=== PATIENT | female | born 1930 | race Caucasian/White ===

== ENCOUNTER 2017-07-28 21:04 | Inpatient (IN) | payer MEDICARE ==
[~2017-07-28] VITALS: Ht 152.4 cm; Wt 45.8 kg
--- NOTE | 2017-07-28 21:26 | NUR ---
Patient BIB private ambulance from [facility] for Medical Clearance and GPS admission. Patient arrives on 5150 hold for GD. Per hold, patient has been refusing medications for several days, has become increasingly agitated, as well as both verbally and physically aggressive towards staff at her facility. Per hold, patient has been non-compliant with ADLs and basic care. Patient arrives A/O x1, ambulatory, calm and cooperative with staff. To room 4B.
[2017-07-28] MEDS ORDERED: CHOL20004 PO (21:27)
[2017-07-28] MEDS ORDERED: MAG355OR18 PO (21:27)
[2017-07-28] MEDS ORDERED: SIMV10TA2 PO (21:27)
[2017-07-28] MEDS ORDERED: ASCO-375 PO (21:27)
[2017-07-28] MEDS ORDERED: MAGN400O6 PO (21:27)
[2017-07-28] MEDS ORDERED: ACET-2154 PO (21:27)
[2017-07-28] MEDS ORDERED: OLAN7.5T3 PO (21:27)
[2017-07-28 21:35] LABS: BASOPHILS # (AUTO) 0.1 K/uL (0.0-8.0); BASOPHILS % (AUTO) 0.6 % (0.0-2.0); EOSINOPHILS # (AUTO) 0.2 K/uL (0.0-0.7); EOSINOPHILS % (AUTO) 1.7 % (0.0-7.0); HEMATOCRIT 39.6 % (31.2-41.9); HEMOGLOBIN 13.5 g/dL (10.9-14.3); LYMPHOCYTES # (AUTO) 6.2 K/uL (20.0-40.0); LYMPHOCYTES % (AUTO) 46.2 % (20.5-51.5); MEAN CORPUSCULAR HGB CONC 34 g/dL (32.3-35.6); MEAN CORPUSCULAR VOLUME 88.1 fL (75.5-95.3); MONOCYTES # (AUTO) 1.2 K/uL (2.0-10.0); MONOCYTES % (AUTO) 8.6 % (0.0-11.0); NEUTROPHILS # (AUTO) 5.8 K/uL (1.8-8.9); NEUTROPHILS % (AUTO) 42.9 % (38.5-71.5); PLATELET COUNT (AUTO) 307 K/uL (179-408); WHITE BLOOD COUNT (AUTO) 13.5 K/uL (3.8-11.8)
[2017-07-28 21:39] LABS: CARBON DIOXIDE 31 mmol/L (21-32); CHLORIDE 106 mmol/L (98-107); CREATININE 0.7 mg/dL (0.6-1.3); GLUCOSE 99 mg/dL (74-106); UREA NITROGEN, BLOOD 23 mg/dL (7-18)
[2017-07-28 21:56] LABS: ALANINE AMINOTRANSFERASE 16 U/L (14-59); ALKALINE PHOSPHATASE 93 U/L (50-136); ASPARTATE AMINOTRANSFERASE 13 U/L (15-37); BILIRUBIN,DIRECT 0.1 mg/dL (0.0-0.2); BILIRUBIN,TOTAL 0.4 mg/dL (0.2-1.0)
[2017-07-28 21:57] LABS: ACETAMINOPHEN < 2.0 ug/mL (10-30); ETHANOL < 3 MG/DL (0-0)
[2017-07-28 22:08] LABS: THYROID STIMULATING HORMONE 2.384 mIU/mL (0.358-3.740)
--- NOTE | 2017-07-28 22:15 | NUR ---
Patient medically cleared by ERMD.
--- NOTE | 2017-07-28 22:36 | NUR ---
Pt. admitted to GPS, under care of Dr. Wilde Belongs List completed
[2017-07-28 22:45] VITALS: BP 134/65
[2017-07-28] MEDS ORDERED: ZOLPIDEM 5 MG TABLET PO PRN (22:45)
[2017-07-28] MEDS ORDERED: ACETAMINOPHEN 325 MG TABLET PO PRN (22:45)
[2017-07-28] MEDS ORDERED: LORAZEPAM 0.5 MG TABLET PO PRN (22:45)
[2017-07-28] MEDS ORDERED: MAG HYDROX/AL HYDROX/SIMETH 30 ML LIQUID UDC PO PRN (22:45)
--- NOTE | 2017-07-28 23:50 | NUR ---
received to care, on a 72 hour hold, for gravely being disabled. according to the chart, she is a resident of [facility], where she was reportedly received to care, at 2240, on a 72 hour hold, for gravely disabled. according to the chart, she is a resident of [facility], where she was refusing her medications and hygiene for several days, and had become increasingly agitated, and verbally/physically aggressive, to the point of being unmanageable, at her facility. upon arrival, she was cooperative, but very confused, and disorganized. unable to answer or comprehend interview questions. she was assisted to the bathroom, and to bed. as of 2349, she appears to be asleep. no distress noted. will continue to monitor closely. Addendum: 07/29/17 at 0035 by BUSTER MELENDEZ LVN error/ please disregard. Addendum: 07/29/17 at 0035 by BUSTER MELENDEZ LVN error
--- NOTE | 2017-07-28 23:50 | NUR ---
received to care, on a 72 hour hold, for gravely being disabled. according to the chart, she is a resident of [facility] [place], where she was reportedly refusing care, hygiene, and medications, for several days, becoming increasingly agitated, and verbally/physically aggressive. upon arrival on the unit, she was cooperative, but confused and disorganized, and unable to answer or comprehend questions. she was assisted to the bathroom, and bed. as of 2329, she appears asleep. no distress noted. will continue to monitor closely.
[2017-07-29 02:32] LABS: *BILIRUBIN,URIN NEGATIVE (NEGATIVE); *BLOOD, URINE Trace-lysed (NEGATIVE); *CLARITY,URINE CLEAR (CLEAR); *COLOR,URINE YELLOW (YELLOW); *KETONES,URINE 1+ (NEGATIVE); *PROTEIN,URINE NEGATIVE (NEGATIVE); *UROBILINOGEN,URINE 0.2 E.U./dl (NORMAL); LEUKOCYTE ESTERASE ,URINE TRACE (NEGATIVE); NITRITE, URINE NEGATIVE (NEGATIVE); PH,URINE 5.5 (5.0-8.0); UGLUCOSE NEGATIVE (NEGATIVE)
[2017-07-29 02:39] LABS: BACTERIA,URINE NONE SEEN /HPF (NONE SEEN); SQUAMOUS EPITHELIAL CELL,UR FEW /HPF (NONE SEEN)
[2017-07-29 03:46] LABS: *AMPHETAMINE, URINE NEGATIVE (NEGATIVE); *BARBITURATE, URINE NEGATIVE (NEGATIVE); *CANNABINOID, URINE NEGATIVE (NEGATIVE); *COCCAINE, URINE NEGATIVE (NEGATIVE); *OPIATE, URINE NEGATIVE (NEGATIVE); *PHENCYCLIDINE SCREEN,URINE NEGATIVE (NEGATIVE)
--- NOTE | 2017-07-29 06:00 | NUR ---
slept 4.5 hours, total. continues to sleep. no distress noted.
[2017-07-29 07:30] VITALS: BP 104/50
[2017-07-29] MEDS ORDERED: Medication Not On Formulary EA (Cholecalciferol (Vitamin D3) (Vitamin D CAPSULE) 2,000 U PO SCH (10:30)
[2017-07-29] MEDS: ASCORBIC ACID 500 MG TABLET PO SCH (12:19)
[2017-07-29 15:00] VITALS: BP 127/60
[2017-07-29] MEDS: SULFAMETH/TRIMETH 800/160 MG TABLET PO SCH ×2 (15:56→20:20)
[2017-07-29] MEDS: SIMVASTATIN 10 MG TABLET PO SCH (20:20)
[2017-07-29] MEDS: OLANZAPINE ZYDIS 5 MG TAB.RAPDIS PO SCH (20:20)
[2017-07-29 20:36] VITALS: BP 116/60
[2017-07-30 07:30] VITALS: BP 121/52
[2017-07-30] MEDS: CHOLECALCIFEROL 1,000 UNIT TABLET PO SCH (08:52)
[2017-07-30] MEDS: OLANZAPINE ZYDIS 5 MG TAB.RAPDIS PO SCH ×2 (08:52→20:16)
[2017-07-30] MEDS: SULFAMETH/TRIMETH 800/160 MG TABLET PO SCH (08:52)
[2017-07-30] MEDS: ASCORBIC ACID 500 MG TABLET PO SCH (08:52)
--- NOTE | 2017-07-30 14:49 | NUR ---
Initial DC Plan: Patient arrived from [facility] [[id number] [place] [address]; ]. MEE spoke with Edison at [facility] who stated patient can return to facility upon discharge. MEE will follow up with MD and patient to discuss most appropriate discharge plans. SW will form a safe and proper discharge.
[2017-07-30 15:00] VITALS: BP 117/53
[2017-07-30] MEDS: SIMVASTATIN 10 MG TABLET PO SCH (20:15)
[2017-07-30 20:56] VITALS: BP 125/63
[2017-07-31 07:30] VITALS: BP 105/50
[2017-07-31 07:49] LABS: BASOPHILS # (AUTO) 0.1 K/uL (0.0-8.0); BASOPHILS % (AUTO) 0.7 % (0.0-2.0); EOSINOPHILS # (AUTO) 0.3 K/uL (0.0-0.7); EOSINOPHILS % (AUTO) 3.1 % (0.0-7.0); HEMATOCRIT 40.4 % (37-47); HEMOGLOBIN 13.5 G/DL (12.0-16.0); LYMPHOCYTES # (AUTO) 4.9 K/UL (0.8-4.8); LYMPHOCYTES % (AUTO) 48.4 % (20.5-51.5); MEAN CORPUSCULAR HEMOGLOBIN 29.4 UUG (27.0-31.0); MEAN CORPUSCULAR HGB CONC 33 g/dL (32.0-37.0); MEAN CORPUSCULAR VOLUME 88.2 FL (81.0-99.0); NEUTROPHILS # (AUTO) 3.8 K/UL (1.8-8.9); NEUTROPHILS % (AUTO) 37.8 % (38.5-71.5); PLATELET COUNT (AUTO) 314 K/UL (150-450); RED BLOOD CELL COUNT(AUTO) 4.58 MIL/UL (4.2-5.4)
[2017-07-31 07:55] LABS: WHITE BLOOD COUNT (AUTO) 10.1 K/UL (4.0-11.2)
[2017-07-31 07:59] LABS: ALANINE AMINOTRANSFERASE 14 U/L (14-59); ALKALINE PHOSPHATASE 88 U/L (50-136); ASPARTATE AMINOTRANSFERASE 13 U/L (15-37); BILIRUBIN,TOTAL 0.6 mg/dL (0.2-1.0); CARBON DIOXIDE 28 mmol/L (21-32); CHLORIDE 107 mmol/L (98-107); CREATININE 0.8 mg/dL (0.6-1.3); GLUCOSE 97 mg/dL (74-106); MAGNESIUM 2.2 mg/dL (1.8-2.4); PHOSPHOROUS 3.5 mg/dL (2.5-4.9); POTASSIUM 4.4 mmol/L (3.5-5.1); TOTAL PROTEIN, SERUM 6.5 g/dL (6.4-8.2); UREA NITROGEN, BLOOD 25 mg/dL (7-18)
[2017-07-31] MEDS: ASCORBIC ACID 500 MG TABLET PO SCH (08:13)
[2017-07-31] MEDS: OLANZAPINE ZYDIS 5 MG TAB.RAPDIS PO SCH ×2 (08:13→20:06)
[2017-07-31] MEDS: CHOLECALCIFEROL 1,000 UNIT TABLET PO SCH (08:13)
[2017-07-31 15:09] VITALS: BP 110/50
[2017-07-31 20:05] VITALS: BP 119/59
[2017-07-31] MEDS: SIMVASTATIN 10 MG TABLET PO SCH (20:06)
--- NOTE | 2017-08-01 06:41 | NUR ---
PATIENT SLEPT 8 HRS THROUGH THE NIGHT. NO BEHAVIOR PROBLEMS NOTED DURING THE SHIFT. PT GAINING MORE INSIGHT. HAD A SHOWER THIS MORNING.
[2017-08-01 07:30] VITALS: BP 102/50
[2017-08-01] MEDS: CHOLECALCIFEROL 1,000 UNIT TABLET PO SCH (08:48)
[2017-08-01] MEDS: ASCORBIC ACID 500 MG TABLET PO SCH (08:48)
[2017-08-01] MEDS: OLANZAPINE ZYDIS 5 MG TAB.RAPDIS PO SCH ×2 (08:48→20:13)
[2017-08-01 15:16] VITALS: BP 119/65
[2017-08-01 20:03] VITALS: BP 106/60
[2017-08-01] MEDS: SIMVASTATIN 10 MG TABLET PO SCH (20:13)
[2017-08-02 07:30] VITALS: BP 106/52
[2017-08-02] MEDS: CHOLECALCIFEROL 1,000 UNIT TABLET PO SCH (08:48)
[2017-08-02] MEDS: ASCORBIC ACID 500 MG TABLET PO SCH (08:48)
[2017-08-02] MEDS: OLANZAPINE ZYDIS 5 MG TAB.RAPDIS PO SCH ×2 (08:48→20:17)
[2017-08-02 16:00] VITALS: BP 103/48
[2017-08-02] MEDS: SIMVASTATIN 10 MG TABLET PO SCH (20:17)
[2017-08-02 20:28] VITALS: BP 119/68
[2017-08-03 07:30] VITALS: BP 105/48
[2017-08-03] MEDS: OLANZAPINE ZYDIS 5 MG TAB.RAPDIS PO SCH ×2 (08:35→20:25)
[2017-08-03] MEDS: ASCORBIC ACID 500 MG TABLET PO SCH (08:35)
[2017-08-03] MEDS: CHOLECALCIFEROL 1,000 UNIT TABLET PO SCH (08:36)
[2017-08-03 16:12] VITALS: BP 100/57
[2017-08-03] MEDS: SIMVASTATIN 10 MG TABLET PO SCH (20:26)
[2017-08-03 20:36] VITALS: BP 113/47
--- NOTE | 2017-08-04 06:53 | NUR ---
Patient slept for approx 10hrs through the night. She is calm and cooperative. Withdrawn in her room.
[2017-08-04 07:30] VITALS: BP 112/54
[2017-08-04] MEDS: ASCORBIC ACID 500 MG TABLET PO SCH (08:21)
[2017-08-04] MEDS: OLANZAPINE ZYDIS 5 MG TAB.RAPDIS PO SCH (08:21)
[2017-08-04] MEDS: CHOLECALCIFEROL 1,000 UNIT TABLET PO SCH (08:21)
--- NOTE | 2017-08-04 10:06 | NUR ---
DC Note: Patient will be discharged to [facility] [[address] [place] [address]; ] via ambulance at 4pm. MEE spoke with Edison at [facility] to confirm discharge plans. Patient is aware of discharge plans. Patient will follow up with Dr. Parker (Residential Electrician) and Dr. Wilde (Psychiatrist).
--- NOTE | 2017-08-04 11:19 | NUR ---
Discharge Planning Note: MEE spoke with patient's Cristino Curtis [[phone]]. Patient's is aware and agreeable to discharge plans.
--- NOTE | 2017-08-04 15:00 | NUR ---
GPS: Nursing Notes: Discharge Notes: Patient is awake and responding to her name, cooperative with nursing care, compliant with her medications, A/Ox2, needs prompting to participate in therapeutic groups, denies any SI/Hi, denies any AH/VH, denies any pain or discomfort, denies any SOB, discharge to [facility] at [id number] [place] [id number] , report given to Sarina LACY refractory products supervisor, informed her Cristino of discharge, transported to facility via ambulance, Dr. Wilde (psychiatrist) and Dr. Parker (automobile or truck rental dispatcher) will continue with aftercare at the facility.
== END 2017-08-04 15:00 | DRG 885 ==
LOC: ER 21:07 → GPS 22:24
PROVIDERS: ADMIT Psychiatry & Neurology Psychiatry; ATTEND Internal Medicine
DX: F29 Unspecified psychosis not due to a substance or known physiological condition (principal); F02.81 Dementia in other diseases classified elsewhere, unspecified severity, with behavioral disturbance; D68.9 Coagulation defect, unspecified; G30.9 Alzheimer's disease, unspecified; N39.0 Urinary tract infection, site not specified; E78.5 Hyperlipidemia, unspecified; I10 Essential (primary) hypertension; I25.10 Atherosclerotic heart disease of native coronary artery without angina pectoris; Z86.73 Personal history of transient ischemic attack (TIA), and cerebral infarction without residual deficits; Z79.899 Other long term (current) drug therapy; D72.829 Elevated white blood cell count, unspecified; R53.1 Weakness; F20.9 Schizophrenia, unspecified; F31.9 Bipolar disorder, unspecified; Z87.440 Personal history of urinary (tract) infections
CPT/HCPCS: 36415; 70030-TC; 70450; 71010; 80307; 83735; 84100; 84443; 85025; 85730; 87086; 92523; 93005; A4663; G0480; G0480-TC

== ENCOUNTER 2019-07-15 13:39 | Inpatient (IN) | payer MEDICARE ==
[~2019-07-15] VITALS: Ht 157.5 cm; Wt 59.0 kg
[~2019-07-15 13:39] MED LIST: ACET-2154 PO; ASCO-375 PO; CHOL20004 PO; MAG355OR18 PO; MAGN400O6 PO; SIMV10TA2 PO
[2019-07-15] MEDS ORDERED: OLAN5TAB3 PO (14:04)
[2019-07-15] MEDS ORDERED: IV NORMAL SALINE 1000 ML BAG IV ONE (14:15)
[2019-07-15 14:21] LABS: BASOPHILS # (AUTO) 0.1 K/uL (0.0-8.0); BASOPHILS % (AUTO) 0.7 % (0.0-2.0); EOSINOPHILS # (AUTO) 0.2 K/uL (0.0-0.7); EOSINOPHILS % (AUTO) 1.1 % (0.0-7.0); HEMATOCRIT 37.2 % (31.2-41.9); HEMOGLOBIN 12.1 g/dL (10.9-14.3); LYMPHOCYTES # (AUTO) 3.7 K/uL (20.0-40.0); MEAN CORPUSCULAR HEMOGLOBIN 29.1 uug (24.7-32.8); MEAN CORPUSCULAR HGB CONC 33 g/dL (32.3-35.6); MEAN CORPUSCULAR VOLUME 89.5 fL (75.5-95.3); MONOCYTES # (AUTO) 1.4 K/uL (2.0-10.0); MONOCYTES % (AUTO) 10.7 % (0.0-11.0); NEUTROPHILS # (AUTO) 8.2 K/uL (1.8-8.9); NEUTROPHILS % (AUTO) 60.5 % (38.5-71.5); PLATELET COUNT (AUTO) 240 K/uL (179-408); RED BLOOD CELL COUNT(AUTO) 4.15 MIL/uL (3.63-4.92); WHITE BLOOD COUNT (AUTO) 13.6 K/uL (3.8-11.8)
[2019-07-15 14:31] LABS: CARBON DIOXIDE 28 mmol/L (21-32); CHLORIDE 107 mmol/L (98-107); CREATININE 0.8 mg/dL (0.6-1.3); GLUCOSE 152 mg/dL (74-106); POTASSIUM 3.2 mmol/L (3.5-5.1); UREA NITROGEN, BLOOD 15 mg/dL (7-18)
[2019-07-15 14:45] LABS: ALANINE AMINOTRANSFERASE 12 U/L (14-59); ALKALINE PHOSPHATASE 84 U/L (50-136); ASPARTATE AMINOTRANSFERASE 10 U/L (15-37); BILIRUBIN,DIRECT 0.1 mg/dL (0.0-0.2); BILIRUBIN,TOTAL 0.5 mg/dL (0.2-1.0); LIPASE 82 U/L (73-393); TOTAL PROTEIN, SERUM 6.3 g/dL (6.4-8.2)
[2019-07-15] MEDS ORDERED: VANCOMYCIN IV 1,000 MG in IV DEXTROSE 5% 250 ML IV ONE (15:30)
[2019-07-15] MEDS ORDERED: PIPERACILLIN SODIUM/TAZOBACTAM 3.375 G in IV DEXTROSE 5% 50 ML IV ONE (15:30)
[2019-07-15] MEDS ORDERED: VANCOMYCIN IV 200 ML ONE (15:31)
[2019-07-15 17:07] VITALS: BP 142/63
[2019-07-15] MEDS ORDERED: PIPERACILLIN SODIUM/TAZOBACTAM 3.375 G in IV DEXTROSE 5% 50 ML IV SCH (18:00)
[2019-07-15] MEDS ORDERED: ACETAMINOPHEN 325 MG TABLET PO PRN (18:15)
[2019-07-15 19:51] VITALS: BP 150/61
[2019-07-15] MEDS: SIMVASTATIN 10 MG TABLET PO SCH (20:48)
[2019-07-15] MEDS: OLANZAPINE 5 MG TABLET PO SCH (20:49)
[2019-07-15] MEDS ORDERED: PIPERACILLIN/TAZOBACTAM/D5W 50 ML IV ONE (21:21)
[2019-07-15] MEDS: PIPERACILLIN/TAZO 2.25 G in IV DEXTROSE 5% 50 ML IV SCH ×2 (21:30→21:38)
[2019-07-15 23:57] VITALS: BP 145/55
[2019-07-16 04:01] VITALS: BP 117/53
[2019-07-16] MEDS: PIPERACILLIN/TAZO 2.25 G in IV DEXTROSE 5% 50 ML IV SCH ×4 (04:09→20:26)
[2019-07-16 06:26] LABS: BASOPHILS % (AUTO) 0.2 % (0.0-2.0); HEMATOCRIT 37.9 % (31.2-41.9); HEMOGLOBIN 12.5 g/dL (10.9-14.3); LYMPHOCYTES # (AUTO) 1.9 K/uL (20.0-40.0); LYMPHOCYTES % (AUTO) 10.9 % (20.5-51.5); MEAN CORPUSCULAR HEMOGLOBIN 29.6 uug (24.7-32.8); MEAN CORPUSCULAR HGB CONC 33 g/dL (32.3-35.6); MEAN CORPUSCULAR VOLUME 89.8 fL (75.5-95.3); MONOCYTES # (AUTO) 1.2 K/uL (2.0-10.0); MONOCYTES % (AUTO) 7.2 % (0.0-11.0); NEUTROPHILS # (AUTO) 14.1 K/uL (1.8-8.9); NEUTROPHILS % (AUTO) 81.7 % (38.5-71.5); PLATELET COUNT (AUTO) 243 K/uL (179-408); RED BLOOD CELL COUNT(AUTO) 4.22 MIL/uL (3.63-4.92); WHITE BLOOD COUNT (AUTO) 17.2 K/uL (3.8-11.8)
[2019-07-16 06:29] LABS: CREATININE 0.7 mg/dL (0.6-1.3); MAGNESIUM 1.8 mg/dL (1.8-2.4); POTASSIUM 3.6 mmol/L (3.5-5.1)
[2019-07-16] MEDS: OLANZAPINE 5 MG TABLET PO SCH ×2 (08:31→17:31)
[2019-07-16] MEDS: CHOLECALCIFEROL 1,000 UNIT TABLET PO SCH (08:31)
[2019-07-16] MEDS ORDERED: OLANZAPINE 5 MG TABLET PO SCH (09:00)
[2019-07-16 11:00] VITALS: BP 108/41
[2019-07-16 15:00] VITALS: BP 113/41
[2019-07-16 20:03] VITALS: BP 115/43
[2019-07-16] MEDS: CULTURELLE CAPSULE PO SCH (21:00)
[2019-07-16] MEDS: SIMVASTATIN 10 MG TABLET PO SCH (21:00)
[2019-07-16] MEDS: VANCOMYCIN IV 1,000 MG in IV DEXTROSE 5% 250 ML IV SCH (21:49)
[2019-07-17 00:56] VITALS: BP 120/45
[2019-07-17] MEDS: PIPERACILLIN/TAZO 2.25 G in IV DEXTROSE 5% 50 ML IV SCH ×2 (02:36→08:38)
[2019-07-17 04:00] VITALS: BP 113/51
[2019-07-17] MEDS: OLANZAPINE 5 MG TABLET PO SCH ×2 (08:38→17:16)
[2019-07-17] MEDS: CHOLECALCIFEROL 1,000 UNIT TABLET PO SCH (08:38)
[2019-07-17] MEDS: CULTURELLE CAPSULE PO SCH ×2 (08:38→20:42)
[2019-07-17 11:35] VITALS: BP 112/42
[2019-07-17 15:46] VITALS: BP 106/41
[2019-07-17] MEDS: PIPERACILLIN SODIUM/TAZOBACTAM 3.375 G in IV DEXTROSE 5% 50 ML IV SCH (17:16)
[2019-07-17 20:14] VITALS: BP 121/41
[2019-07-17] MEDS: SIMVASTATIN 10 MG TABLET PO SCH (20:42)
[2019-07-17] MEDS ORDERED: ACIDOPHILUS/BULGARICUS CHEW TAB PO SCH (22:00)
[2019-07-18] MEDS: PIPERACILLIN SODIUM/TAZOBACTAM 3.375 G in IV DEXTROSE 5% 50 ML IV SCH ×2 (01:35→08:09)
[2019-07-18] MEDS: VANCOMYCIN IV 1,000 MG in IV DEXTROSE 5% 250 ML IV SCH (04:22)
[2019-07-18 04:30] VITALS: BP 115/52
[2019-07-18 06:39] LABS: BASOPHILS % (AUTO) 0.5 % (0.0-2.0); EOSINOPHILS # (AUTO) 0.7 K/uL (0.0-0.7); EOSINOPHILS % (AUTO) 6.1 % (0.0-7.0); HEMATOCRIT 34.6 % (31.2-41.9); HEMOGLOBIN 11.4 g/dL (10.9-14.3); LYMPHOCYTES # (AUTO) 6.2 K/uL (20.0-40.0); LYMPHOCYTES % (AUTO) 58.7 % (20.5-51.5); MEAN CORPUSCULAR HEMOGLOBIN 29.7 uug (24.7-32.8); MEAN CORPUSCULAR HGB CONC 33 g/dL (32.3-35.6); MONOCYTES # (AUTO) 0.9 K/uL (2.0-10.0); MONOCYTES % (AUTO) 8.4 % (0.0-11.0); NEUTROPHILS # (AUTO) 2.8 K/uL (1.8-8.9); NEUTROPHILS % (AUTO) 26.3 % (38.5-71.5); PLATELET COUNT (AUTO) 255 K/uL (179-408); RED BLOOD CELL COUNT(AUTO) 3.84 MIL/uL (3.63-4.92); WHITE BLOOD COUNT (AUTO) 10.7 K/uL (3.8-11.8)
[2019-07-18 06:46] LABS: CARBON DIOXIDE 28 mmol/L (21-32); CHLORIDE 108 mmol/L (98-107); CREATININE 0.7 mg/dL (0.6-1.3); GLUCOSE 120 mg/dL (74-106); MAGNESIUM 1.9 mg/dL (1.8-2.4); UREA NITROGEN, BLOOD 16 mg/dL (7-18)
[2019-07-18 07:47] LABS: EOSINOPHILS % (MANUAL) 4 % (0-8); LYMPHOCYTES % (MANUAL) 61 % (20-40); MONOCYTES % (MANUAL) 9 % (2-10); NEUTROPHILS % (MANUAL) 26 % (42-75)
[2019-07-18] MEDS: CULTURELLE CAPSULE PO SCH (08:00)
[2019-07-18] MEDS: OLANZAPINE 5 MG TABLET PO SCH (08:01)
[2019-07-18] MEDS: CHOLECALCIFEROL 1,000 UNIT TABLET PO SCH (08:01)
[2019-07-18] MEDS: POTASSIUM CHLORIDE 20 MEQ TAB.PRT.SR PO SCH ×3 (10:34→16:55)
[2019-07-18 11:01] VITALS: BP 124/52
[2019-07-18 15:12] VITALS: BP 133/55
== END 2019-07-18 16:57 | DRG 872 ==
LOC: ER 13:39 → TELE3 16:40 → MEDSURG3 07-17 11:20
PROVIDERS: ADMIT Internal Medicine Nephrology; ATTEND Internal Medicine
PROC: 05H933Z Insertion of Infusion Device into Right Brachial Vein, Percutaneous Approach (ICD-10-PCS; principal; 2019-07-18)
DX: A41.9 Sepsis, unspecified organism (principal); L03.213 Periorbital cellulitis; E78.5 Hyperlipidemia, unspecified; F20.9 Schizophrenia, unspecified; F31.9 Bipolar disorder, unspecified; Z86.73 Personal history of transient ischemic attack (TIA), and cerebral infarction without residual deficits; I10 Essential (primary) hypertension; F03.90 Unspecified dementia, unspecified severity, without behavioral disturbance, psychotic disturbance, mood disturbance, and anxiety
CPT/HCPCS: 36415; 70030-TC; 70486; 71045; 83605; 83690; 83735; 84100; 85025; 85730; 87040; 93005; A4663; G0378; J2543; J3370; J7030; J7050; J7060